=== PATIENT | female | born 2000 | race Caucasian/White ===

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

== ENCOUNTER 2020-03-19 08:34 | Emergency (ER) | payer OTHER, MEDICAID, SELFPAY ==
[2020-03-19 08:50] VITALS: BP 116/82; PULSE 89; RESP 18; TEMP 36.7; O2SAT 100
--- NOTE | 2020-03-19 09:13 | ED.GENADULT ---
HPI - General Adult General Chief complaint: Unspecified Stated complaint: sore throat Time Seen by Provider: 03/19/20 08:43 Source: RN notes reviewed History of Present Illness HPI narrative: Patient presents emergency department from home for sore throat. States that symptoms began last night. States that throat is painful and feels worse with swallowing states pain is a 7 out of 10. She denies any fevers or chills rhinorrhea cough shortness of breath chest pain nausea vomiting or any other symptoms. States that her child has been sick with a viral infection and gone to the ED with the child several days ago and been diagnosed with a virus and states the cough again the throat today and she also brought the child in for evaluation states she took no pain medication at home denies any chance of Related Data Allergies Allergy/AdvReac Type Severity Reaction Status Date / Time No Known Allergies Allergy Verified 03/19/20 08:52 Review of Systems Review of Systems: Narrative: Gen.: Denies fevers or chills ENT: See HPI Respiratory: Denies shortness of breath or cough CV: Denies chest pain or palpitations GI: Denies abdominal pain nausea, emesis or diarrhea denies chance of Musculoskeletal: Denies back pain or muscle pain Neuro: Denies numbness, tingling, weakness or focal weakness Skin: Denies rash Except as documented, all other systems reviewed and negative [facility] Past Medical History Medical History Anxiety Headache, migraine No pertinent past medical history Seizure one time from anxiety Surgical History Surgical History History of placement of ear tubes Hx of tympanostomy tubes Family History Family History Mother Cancer Social History Social History Smoking status: Never smoker Second hand tobacco smoke exposure: No Alcohol intake: never Substance use: never Substance use type: does not use Additional occupation/education comments: [employer] Gender identity (if verbalized by the patient): Female Spiritual care concerns: No Agree to blood products: Yes Exam Narrative: Exam Narrative: APPEARANCE: No acute distress, nontoxic, resting in bed EYES: EOMI HEENT: Normocephalic, atraumatic, TMs clear bilaterally nares patent or mucosa moist mild erythema with no exudate of posterior pharynx bilateral tonsils, tonsils 2+ uvula midline no trismus tolerating own secretions RESPIRATORY: No respiratory distress Clear to auscultation bilaterally with no rhonchi wheezing or rales. CARDIOVASCULAR: Regular rate and rhythm without murmurs rubs or gallops. ABDOMINAL: Soft, nontender, nondistended, no rebound or guarding MUSCULOSKELETAl: Moves all extremities. No clubbing, cyanosis or edema. NEURO: Awake and alert. Following commands, speech normal, no focal deficits SKIN:: Warm, dry. No rashes lesions or abrasions PSYCHIATRIC: Normal affect/mood, Course Course Emergency Course: Discussed with patient results of workup and diagnosis. Discussed need for follow-up with primary care, proper use of medication, and reasons to return to the emergency department. Patient understands and agrees to current treatment plan. With patient's child also being sick will check for Covid Vital Signs Vital signs: Vital Signs Temperature 98.1 F 03/19/20 08:50 Pulse Rate 89 03/19/20 08:50 Respiratory Rate 18 03/19/20 08:50 Blood Pressure 116/82 03/19/20 08:50 Pulse Oximetry 100 03/19/20 08:50 Temperature 98.1 F 03/19/20 08:50 Pulse Rate 89 03/19/20 08:50 Respiratory Rate 18 03/19/20 08:50 Blood Pressure 116/82 03/19/20 08:50 Pulse Oximetry 100 03/19/20 08:50 Medical Decision Making Vital Signs Vital Signs: Vital Signs Temperature
[2020-03-19] MEDS: ACETAMINOPHEN 500 MG TABLET 1000 MG PO (09:30)
[2020-03-19 09:35] VITALS: BP 116/86; PULSE 81; RESP 15; O2SAT 100
[2020-03-19 22:34] LABS: SARS-CoV-2 RNA PCR Negative
== END 2020-03-19 09:36 | disposition home or self-care (01) ==
PROVIDERS: Emergency Provider Emergency Medicine
DX: J02.9 Acute pharyngitis, unspecified (principal); F41.9 Anxiety disorder, unspecified
CPT/HCPCS: 87081; 87880; 99283; A9270; C9803; U0003; U0005

== ENCOUNTER 2021-01-24 16:48 | Emergency (ER) | payer OTHER, MEDICAID, SELFPAY ==
[2021-01-24 16:55] VITALS: BP 155/89; PULSE 72; RESP 18; TEMP 36.2; O2SAT 100
--- NOTE | 2021-01-24 17:47 | PC.NURSE ---
patient walked out of ED without difficulty and in no distress.
== END 2021-01-25 04:30 | disposition left against medical advice (07) ==
DX: Z53.21 Procedure and treatment not carried out due to patient leaving prior to being seen by health care provider (principal)
CPT/HCPCS: 99199

== ENCOUNTER 2021-04-06 16:46 | Emergency (ER) | payer OTHER, MEDICAID, SELFPAY ==
[2021-04-06 16:49] VITALS: BP 118/78; PULSE 87; RESP 20; TEMP 37.1; O2SAT 100
[2021-04-06 19:51] VITALS: BP 116/68; PULSE 80; RESP 16; TEMP 37.1; O2SAT 100
[2021-04-06 20:05] LABS: Basophils Percent Auto 0.4 % (0.2-1.2); Eosinophils Percent Auto 0.4 % (0-4.4); Hematocrit 42.5 % (37.0-47.0); Hemoglobin 14.4 g/dL (12.0-15.0); Immature Granulocyte Absolute 0.07 K/mm3 (0.00-0.031); Immature Granulocyte Percent A 0.6 % (0-0.5); Lymphocytes Percent Auto 13.2 % (18.3-44.2); Mean Corpuscular HGB Conc 33.9 g/dl (32-36); Mean Corpuscular Hemoglobin 29.2 pg (26-34); Mean Corpuscular Volume 86.2 fl (80-100); Mean Platelet Volume 10.1 fl (7.4-10.4); Monocytes Absolute Auto 0.4 K/mm3 (0.1-0.6); Monocytes Percent Auto 3.6 % (2.6-8.5); Neutrophils Absolute Auto 9.3 K/mm3 (1.3-6.7); Neutrophils Percent Auto 81.8 % (45.5-73.1); Platelet Count Result 266 k/mm3 (150-375); Red Blood Count 4.93 M/mm3 (4.2-5.4); Red Cell Distribution Width 12.6 % (11.5-14.5); White Blood Count 11.4 K/mm3 (4.5-10.0)
[2021-04-06 20:17] LABS: Alanine Aminotransferase 16 U/L (4-35); Albumin Level 4.6 g/dL (3.5-5.1); Alkaline Phosphatase 82 U/L (38-126); Anion Gap 8 mmol/L (8-16); Aspartate Amino Transferase 19 U/L (14-36); Bilirubin,Total 0.5 mg/dL (0.2-1.3); Blood Urea Nitrogen 13 mg/dL (7-17); Calcium 9.2 mg/dL (8.4-10.2); Carbon Dioxide 25 mmol/L (22-30); Chloride 105 mmol/L (98-107); Estimated CRCL calculation 187 ml/min; Estimated Glomerular Filt Rate > 60; Glucose 98 mg/dL (65-110); Lipase 51 U/L (23-300); Potassium 4.1 mmol/L (3.4-5.0); Sodium 138 mmol/L (137-145)
[2021-04-06 20:19] LABS: Add Urine Microscopic? YES; Appearance Urine Clear (Clear); Bacteria Urine Trace /hpf; Bilirubin Urine Negative (Negative); Blood Urine 1+ (Negative); Color Urine Yellow (Yellow); Glucose Urine UA Negative (Negative); Ketones Urine 1+ mg/dL (Negative); Leukocyte Esterase Ur 1+ LEU/UL (Negative); Mucus Urine Few /lpf; Nitrate Urine Negative (Negative); Protein Urine Negative (Negative); Specific Grav Ur 1.024 (1.001-1.035); Squamous Epithelial Cell Urine Many /hpf (Few); Urobilinogen Urine Negative mg/dL (<2.0)
[2021-04-06 21:00] VITALS: BP 120/68; PULSE 72; RESP 16; TEMP 36.4; O2SAT 100
[2021-04-06] MEDS: ONDANSETRON INJ 4 MG/2 ML VIAL IV PUSH (21:02)
[2021-04-06] MEDS: KETOROLAC 15 MG/ML VIAL (*BKC) IV PUSH (21:02)
[2021-04-06] MEDS: LACTATED RINGERS 1,000 ML 999 ML IV CONT (21:02)
[2021-04-06] MEDS: CEPHALEXIN 500 MG CAPSULE PO (22:18)
[2021-04-06 22:29] VITALS: BP 127/86; PULSE 83; RESP 16; O2SAT 100
--- NOTE | 2021-04-06 22:35 | ED.NAVMDI ---
HPI - Nausea/Vomiting/Diarrhea General Chief complaint: Nausea/Vomiting/Diarrhea <Deedee Arellano PUBLICATIONS WRITER - Last Filed: 04/06/21 22:41> Stated complaint: nause/vomiting <Deedee Arellano PUBLICATIONS WRITER Last Filed: 04/06/21 22:41> Time Seen by Provider: 04/06/21 18:52 <Deedee Arellano PUBLICATIONS WRITER - Last Filed: 04/06/21 22:41> Source: patient <Deedee Arellano PUBLICATIONS WRITER - Last Filed: 04/06/21 22:41> Mode of arrival: ambulatory <Deedee Arellano PUBLICATIONS WRITER Last Filed: 04/06/21 22:41> Limitations: no limitations <Deedee Arellano Last Filed: 04/06/21 22:41> History of Present Illness HPI Narrative: 20 year old female presents today with complaints of nausea with 1 episode of vomiting today. Along with cold sweats and headache. Patient was sent home from work today. Patient denies recent sick contacts, cough, runny nose, diarrhea, or urinary symptoms. Patient recently Covid positive at the beginning of February. <Deedee Arellano Last Filed: 04/06/21 22:41> Related Data Allergies/Adverse reactions: Allergies Allergy/AdvReac Type Severity Reaction Status Date / Time buspirone Allergy Mild rash Verified 04/06/21 16:52 <Deedee Arellano Last Filed: 04/06/21 22:41> Review of Systems Review of Systems: CONSTITUTIONAL: Positive for cold sweats. Denies fever, chills. EYES: Denies visual changes, redness, or discharge. ENT: Denies rhinorrhea, congestion, sore throat, or otalgia. CARDIOVASCULAR: Denies chest pain, palpitations, or edema. RESPIRATORY: Denies cough or dyspnea. GASTROINTESTINAL: Positive for nausea and one episode of vomiting. Denies abdominal pain or diarrhea. GENITOURINARY: Denies dysuria or hematuria. SKIN: Denies rash or itching. MUSCULOSKELETAL: Denies back pain, joint pain, or myalgia. NEUROLOGIC: Denies headache, numbness, dizziness, or weakness. PSYCHIATRIC: Denies anxiety or depression. <Deedee Arellano APRN - Last Filed: 04/06/21 22:41> [facility] Past Medical History Medical History: Medical History Anxiety Headache, migraine No pertinent past medical history Seizure one time from anxiety <Deedee Arellano APRN - Last Filed: 04/06/21 22:41> Surgical History Surgical History: Surgical History History of placement of ear tubes Hx of tympanostomy tubes <Deedee Arellano APRN - Last Filed: 04/06/21 22:41> Family History Family History: Family History Mother Cancer <Deedee Arellano APRN - Last Filed: 04/06/21 22:41> Social History Social History: Social History Smoking status: Never smoker Second hand tobacco smoke exposure: No Alcohol intake: never Substance use: never Substance use type: does not use Additional occupation/education comments: [employer] Gender identity (if verbalized by the patient): Female Spiritual care concerns: No Agree to blood products: Yes <Deedee Arellano APRN - Last Filed: 04/06/21 22:41> Exam Narrative: GENERAL: Well-appearing, well-nourished, and in no acute distress. HEAD: Normocephalic, atraumatic. EYES: PERRLA and EOMI. ENT: Nares clear, no rhinorrhea or epistaxis. Mucous membranes moist. Oropharynx without tonsillar hypertrophy exudate or other lesions. Bilateral TMs pearly doss nonbulging NECK: Supple. No adenopathy or masses. No carotid bruits or JVD CHEST: Clear to auscultation. No respiratory distress. No wheezes rales or rhonchi HEART: Regular rate and rhythm. No murmur heard. Normal peripheral pulses. ABDOMEN: Soft, nontender, nondistended, normal active bowel sounds. EXTREMITIES: Normal range of motion. No edema. SKIN: Warm, dry, no rash. NEURO: No focal deficits. Alert and oriented x3. PSYCH: Normal mood and affect. <Deedee Arellano APRN - Last Filed: 04/06/21
== END 2021-04-06 22:30 | disposition home or self-care (01) ==
PROVIDERS: Emergency Provider Nurse Practitioner Family
DX: N39.0 Urinary tract infection, site not specified (principal); R11.0 Nausea; F41.9 Anxiety disorder, unspecified; Z86.16 Personal history of COVID-19
CPT/HCPCS: 36415; 80053; 81001; 81025; 83690; 85025; 87086; 87804; 96361; 96374; 96375; 99284; A9270; J1885; J2405; J7120

== ENCOUNTER 2021-05-21 21:13 | Emergency (ER) | payer OTHER, MEDICAID, SELFPAY ==
--- NOTE | ~2021-05-21 | XR_ITS ---
XR hand LT min 3V DATE: 05/21/2021 21:59 INDICATION: Injury today. Second digit pain radiating to the wrist. Numbness. TECHNIQUE: 3 views COMPARISON: None FINDINGS: No fracture or dislocation, periosteal reaction or bone destruction, erosive change or katrin drocalcinosis. Joint spaces are preserved. IMPRESSION: Negative Reviewed, dictated and finalized at location A. IMPRESSION: Negative
[2021-05-21 21:15] VITALS: BP 129/81; PULSE 83; RESP 18; TEMP 36.3; O2SAT 100
--- NOTE | 2021-05-21 21:54 | PC.NURSE ---
Pt to xray via w/c
--- NOTE | 2021-05-21 22:43 | ED.UPPEXIN ---
HPI - Extremity Injury (Upper) General Chief Complaint: Extremity Injury, Upper <Lyiah Reeves PA-C - Last Filed: 05/22/21 00:36> Stated Complaint: i think i broke my finger <DAHLIA Pastor Last Filed: 05/22/21 00:36> Time Seen by Provider: 05/21/21 22:41 <DAHLIA Pastor Last Filed: 05/22/21 00:36> Source: patient <DAHLIA Pastor Last Filed: 05/22/21 00:36> Mode of arrival: ambulatory <DAHLIA Pastor Last Filed: 05/22/21 00:36> Limitations: no limitations <Liyah Reeves PA-C - Last Filed: 05/22/21 00:36> History of Present Illness HPI narrative: Patient is 21-year-old female who presents the ED with report of L 2nd finger pain. Patient reports she was moving furniture today when she believes she jammed her left second finger into a dresser. She has had pain and mild swelling in her left second finger since then. Reported one episode of numbness in her entire L hand, no numbness currently. No wounds, weakness, fever, chills, other injuries. <Liyah Reeves PA-C - Last Filed: 05/22/21 00:36> Related Data Allergies/Adverse Reactions: Allergies Allergy/AdvReac Type Severity Reaction Status Date / Time buspirone Allergy Mild rash Verified 04/06/21 16:52 <Liyah Reeves PA-C - Last Filed: 05/22/21 00:36> Review of Systems Review of Systems: CONSTITUTIONAL: Denies fever, chills. SKIN: Denies wounds. MUSCULOSKELETAL: Reports pain to L 2nd finger. NEUROLOGIC: Reports one episode of numbness to left hand, resolved. Denies weakness. <DAHLIA Pastor Last Filed: 05/22/21 00:36> All systems reviewed & are unremarkable except as noted in HPI and below <DAHLIA Pastor Last Filed: 05/22/21 00:36> PMFSH Past Medical History Medical History: Medical History Anxiety Headache, migraine No pertinent past medical history Seizure one time from anxiety <Liyah Reeves PA-C - Last Filed: 05/22/21 00:36> Surgical History Surgical History: Surgical History History of placement of ear tubes Hx of tympanostomy tubes <Liyah Reeves PA-C - Last Filed: 05/22/21 00:36> Family History Family History: Family History Mother Cancer <Liyah Reeves PA-C - Last Filed: 05/22/21 00:36> Social History Social History: Social History Smoking status: Never smoker Second hand tobacco smoke exposure: No Alcohol intake: never Substance use: never Substance use type: does not use Additional occupation/education comments: [employer] Gender identity (if verbalized by the patient): Female Spiritual care concerns: No Agree to blood products: Yes <Liyah Reeves PA-C - Last Filed: 05/22/21 00:36> Exam Narrative: GENERAL: Well appearing, well-nourished, non-toxic, in no acute distress. HEAD: Normocephalic, atraumatic. NECK: Supple. No adenopathy, no masses. RESPIRATORY: Airway patent, respirations nonlabored. Clear to auscultation bilaterally, no rales, rhonchi, wheezing. CARDIOVASCULAR: Regular rate and rhythm without murmurs, rubs, or gallops. Radial pulses 2+ and equal bilaterally. MUSCULOSKELETAL: Moves all extremities. No gross deformities. Mild decreased ROM of L 2nd finger due to pain. No significant swelling. No erythema. No wounds. TTP over DIP joints of L 2nd finger. SKIN: Warm, dry, normal color. No rashes. NEURO: A&O X3. Speech clear. Cranial nerves II-XII grossly intact. Steady gait. No ataxic movements. PSYCHIATRIC: Appropriate mood and affect. Normal interaction. <Liyah Reeves PA-C - Last Filed: 05/22/21 00:36> Course WEBLOGIC ADMINISTRATOR/PA Physician Supervision For this encounter, I have reviewed the [facility] documentation, treatment plan and medical decision making: I was available for
== END 2021-05-21 23:16 | disposition home or self-care (01) ==
PROVIDERS: Emergency Provider Emergency Medicine
DX: M79.645 Pain in left finger(s) (principal)
CPT/HCPCS: 73130; 99283

== ENCOUNTER 2022-02-23 11:04 | Outpatient (CLI) | payer OTHER, SELFPAY ==
--- NOTE | ~2022-02-23 | XR_ITS ---
XR_[id number]_CR DATE: 02/23/2022 11:32 INDICATION: Bilateral neck pain. No injury. TECHNIQUE: AP, open-mouth and lateral views COMPARISON: None FINDINGS: There is reversal of cervical curvature. No fracture or dislocation or locked facet. C1 and C2 are normally aligned and the odontoid process i s intact. No prevertebral soft tissue swelling. Minimal loss of height at C4-5 and C5-6 interspaces. Cervical interspaces are otherwise well preserve d. IMPRESSION: Reversal of cervical curvature, which may indicate muscle spasm Minimal loss of height of C4-5 and C5-6 interspaces. Reviewed, dictated and finalized at Location A. Reviewed, dictated and finalized at location L. D CARE CENTRE DIRECTOR
== END 2022-02-23 11:05 | disposition home or self-care (01) ==
LOC: ANHIMG 11:12
PROVIDERS: PCP Family Medicine; Visit Provider Nurse Practitioner Family
DX: M54.2 Cervicalgia (principal)
CPT/HCPCS: 72040

== ENCOUNTER 2024-12-30 14:40 | Emergency (ER) | payer OTHER, SELFPAY ==
[2024-12-30 14:51] VITALS: BP 129/89; PULSE 82; RESP 18; TEMP 36.5; O2SAT 100
--- NOTE | 2024-12-30 14:51 | ED_ITS ---
HPI - General Adult General Chief complaint: Upper Respiratory Infection Stated complaint: Flank /Chest Wall Pain Time Seen by Provider: 12/30/24 14:42 Source: patient Mode of arrival: ambulatory Limitations: no limitations History of Present Illness HPI narrative: patient is a 24-year-old female who presents with multiple complaints. Patient states she has had 1 week of congestion she thought was allergies along with under min just wall pain and rib pain with deep breaths. Patient denies any significant cough, sore throat, nausea, vomiting, diarrhea. Patient also reports bilateral knee pain 1 headache. Patient was told by her family member that she may have high blood pressure since those are the symptoms they had when the or diagnosed. Patient has not taken anything for symptoms and does not have a PCP at this time. Patient states he has gained weight since having daughter year and half ago. Related Data Allergies Allergy/AdvReac Type Severity Reaction Status Date / Time buspirone Allergy Mild rash Verified 12/30/24 14:42 Review of Systems Review of Systems: All systems reviewed & are unremarkable except as noted in HPI and below Constitutional: Constitutional: Denies body ache(s), Denies chills, Reports fatigue, Denies fever(s), Reports headache(s), Denies malaise and Denies weakness Eyes: Eyes: Denies blurry vision, Denies irritation and Denies loss of vision ENT: Denies otalgia, Reports headache(s), Denies nasal discharge, Denies sinus pain and Denies sore throat Cardiovascular: Cardiovascular: Denies chest pain, Denies irregular heart rhythm, Denies dyspnea, Reports dyspnea on exertion and Reports other (chest wall pain) Respiratory: Respiratory: Denies dyspnea Gastrointestinal: Gastrointestinal: Denies abdominal pain, Denies melena, Denies hematochezia, Denies diarrhea, Denies nausea and Denies vomiting Musculoskeletal: Musculoskeletal: Denies back pain, Reports myalgias and Denies arthralgias Integumentary/Breasts: Skin/Breast: Denies pruritus and Denies rash Neurologic: Reports headache(s), Denies loss of vision and Denies weakness Psychiatric: Psychiatric: Reports no additional psychiatric complaints Endocrine: Endocrine: Denies fatigue PMFSH Past Medical History Medical History Seizure one time from anxiety Anxiety Headache, migraine No pertinent past medical history Surgical History Surgical History History of placement of ear tubes Hx of tympanostomy tubes Family History Family History Mother Cancer Social History Social History Smoking status: Never smoker Second hand tobacco smoke exposure: No Alcohol intake: never Substance use: never Substance use type: does not use Living arrangements: alone Occupation/Education: occupation Additional occupation/education comments: [employer] Gender identity (if verbalized by the patient): Female Spiritual care concerns: No Agree to blood products: Yes Comments At time of signature, agree with nursing past medical, surgical, social and family history. There is no relevant family history pertinent to the presenting complaint. Exam Const: General: cooperative, healthy appearing, comfortable, no acute distress and well nourished Nutritional Appearance: well nourished Orientation/consciousness: patient oriented x3 Limitations: no limitations HENMT: Head: normal to inspection, normocephalic and atraumatic Ears: hearing grossly normal bilaterally and external ears normal Face/Nose/Sinus: Normal external nose present, normal facial exam and face symmetric Face and sinus: normal facial exam and face symmetric Mouth: Yes lip normal Eyes: General: appearance normal, both eyes and all related structures Alignment and Position: alignment normal and position normal Periorbital: periorbital findings normal Eyelids: eyelids normal Pupils: Equal, round and reactive pupils present EOM: EOMs intact bilaterally Neck: Neck: normal visual inspection, full ROM and supple Chest: Chest palpation & inspection: normal inspection of the chest and tenderness pectoral muscle bilaterally Resp: Effort & Inspection: normal respiratory effort and able to speak in complete sentences Auscultation: clear to auscultation bilaterally Cardio: Rate: regular rate Rhythm: regular rhythm Heart sounds: S1 normal heart sound present and S2 normal heart sound present GI: Inspection: normal to inspection Skin: General skin exam: normal color and no rashes or lesions noted Neuro: General: patient oriented x3 and moves all extremities Cranial nerves: Yes Equal, round and reactive pupils present Speech: normal speech Gait exam (Neuro): Normal gait present Extrem: General: normal to inspection, full ROM and no edema Psych: Appearance: grossly normal and well kempt Mental Status: mental status grossly normal Speech and movement: Normal speech and movement present Affect: normal affect Attitude: cooperative Thought process: Normal thought process present Course Course Emergency Course: Patient is aware of diagnosis, understands and agrees to treatment plan. Anticip atory guidance given. Patient agrees to follow-up as directed and is aware of reasons to seek care at the emergency department. Portions of this record may have been created with voice recognition software Level of Care: Express Care Visit Vital Signs Vital signs: Reviewed Medical Decision Making MDM Narrative Medical decision making narrative: Discussed the importance of following up with PCP as she may need lab work and further workup. Pt well hydrated appearing, in no respiratory distress, hemodynamically stable. Recommend supportive care. The patient is stable at time of discharge the clinical impression was discussed and the patient was given the opportunity to ask questions, which were addressed as completely as possible given the information available at present. Anticipatory guidance and return to care precautions were discussed and the importance of primary care follow-up was stressed and encouraged. The patient voiced understanding of the plan, indications to return, and the need for follow-up. Exam findings show no acute concerns or changes Patient is appropriate for outpatient treatment and follow-up. Differential Diagnosis Differential Diagnosis: chest wall pain, viral syndrome, allergies, asthma, muscular pain Medical Records Medical records reviewed: Yes I reviewed the external patient's medical records. Vital Signs Vital Signs: Reviewed Lab Data Lab results reviewed: Yes I reviewed the patient's lab results. Lab results narrative: COVID flu are negative Discharge Plan Discharge Clinical Impression: Acute chest wall pain Patient Disposition: Home Condition: Stable Instructions: Chest Wall Pain (ED) Additional Instructions: you were negative for COVID and flu. Your blood pressure and all vitals are normal limits. For pain, you may take: Tylenol 650-1000mg by mouth every 4-6 hours. Do not exceed 4000mg in 24 hours. Advil (Ibuprofen) 600 mg by mouth every 6 hours. Do not exceed 2400mg in 24 hours. 8 AM: Tylenol 11 AM: Ibuprofen 2 PM: Tylenol 5 PM: Ibuprofen 8 PM: Tylenol 11 PM: Ibuprofen 2 AM: Tylenol 5 AM: Ibuprofen 1) Please establish with PCP within the next week2) If you have any worsening of symptoms or any other urgent concerns please go to the ER. 3) Please take medications as prescribed and continue taking your home medications as usual. 4) Please read and follow information included in discharge instructions. Patient Language: [place] Prescriptions: New albuterol sulfate 90 mcg/actuation HFA aerosol inhaler 2 puff inhalation QID PRN (Reason: shortness of breath or wheezing) Qty: 6.7 0RF (DME) Aerochamber MV Spacer See Rx Instructions .Route Qty: 1 0RF Rx Instructions: As directed ibuprofen 600 mg tablet 600 mg PO TID Qty: 30 0RF No Action venlafaxine [Effexor XR] 37.5 mg capsule,extended release 24hr 37.5 mg PO DAILY Qty: 90 0RF Follow-up/Referrals: Vernon Ramirez DO [Physician, Family Practice] - 3 Days Referral Note: establish care Stand Alone Forms: Work/School Release IP Time of Disposition: 15:23
[2024-12-31 11:51] LABS: EDCOVIDSCREEN Negative (Negative); EDINFLUASCREEN Negative (Negative); EDINFLUBSCREEN Negative (Negative)
== END 2024-12-30 15:30 | disposition home or self-care (01) ==
PROVIDERS: Emergency Provider Nurse Practitioner Family
DX: R07.89 Other chest pain (principal); Z20.822 Contact with and (suspected) exposure to COVID-19; F41.9 Anxiety disorder, unspecified
CPT/HCPCS: 87426; 87804; 99213; G0463